=== PATIENT | male | born 1945 | race Caucasian/White ===

== ENCOUNTER → 2017-10-03 12:38 | Outpatient (CLI) | payer MEDICARE, OTHER ==
[2012-06-18 12:39] VITALS: BMI 31.0
== END | disposition home or self-care (01) ==
LOC: D.MRI 12:38
DX: M54.5 Low back pain (principal)

== ENCOUNTER 2018-04-02 06:20 | Day surgery (SDC) | payer MEDICARE, OTHER ==
[2018-04-01 16:39] LABS: HEMATOCRIT 43.7 % (42.0-54.0); HEMOGLOBIN 15.2 g/dL (13.5-17.5); MCH 32.1 pg (26.0-34.0); MCHC 34.8 g/dL (31.0-37.0); MCV 92.2 fL (80.0-100.0); MEAN PLATELET VOLUME 10.4 fL (7.4-10.4); RBC 4.74 10x6/uL (4.20-6.10); RDW 12.9 % (11.5-14.5); WBC 6.3 10x3/uL (4.8-10.8)
[~2018-04-02] VITALS: Ht 172.7 cm; Wt 95.3 kg
--- NOTE | ~2018-04-02 | OP ---
PATIENT NAME: Radha QUEEN MEDICAL RECORD: [id number] [facility] DATE: SURGEON: ROMAN WIGGINS MD DATE OF OPERATION: 04/02/2018 PREOPERATIVE DIAGNOSES: Lumbar spinal stenosis, L4-L5 right with bilateral foraminal stenosis at L4-L5. PROCEDURES: Lumbar laminotomy, medial facetectomy and foraminotomy, L4-L5 on the right with sublaminar decompression. SURGEON: Roman Wiggins MD PRIMARY CARE DOCTOR: Dr. Fuentes. DESCRIPTION AND TECHNIQUE: After induction of general endotracheal anesthesia, the patient was rolled prone on a Sam frame. Lumbar spine was prepped and draped in usual sterile fashion. Fluoroscopic x-ray and spinal needle localized the L4-L5 interspace on the right side. A series of dilators were used to advance a [employer] retractor at L4-L5 on the right. The level was confirmed with fluoroscopic x-ray. A Midas Michael drill and microscope used to perform laminotomy, medial facetectomy and foraminotomy at L4-L5 on the right. Hypertrophied ligamentum flavum was removed with Cloward rongeurs. This decompressed the dura on the right side as well as L5 and L4 nerve roots. The retractor was tilted to the opposite side. The spinous process at L4 was undermined with a Midas-Michael drill. Hypertrophied ligamentum flavum was removed on the opposite side. The left L4 and L5 nerve roots were decompressed well with Cloward rongeurs by removing hypertrophied ligamentum flavum. The wound was irrigated with copious amounts of Ancef irrigant solution. The retractor was removed. The fascia was closed with 2-0 Vicryl suture, the subdermal layer was closed with 3-0 Vicryl suture. The skin was closed with lucero. A sterile dressing was applied to the wound. The patient was awakened in good condition, taken to recovery. All counts were reported as correct. Estimated blood loss was minimal. TRANSINT:[id number] Voice Confirmation ID: [id number] DOCUMENT ID: [id number] ROMAN WIGGINS MD at 0853 CC: [id number] DICTATION DATE: 04/07/18 09 HEALTH INFORMATION TECHNICIAN: 04/07/18 1120 [facility] 04/02/18 [place] [id number] [place] [address]
[~2018-04-02 06:20] MED LIST: LOVASTATIN40 MG PO; PRINIVIL20 MG PO; PROPRANOLOL HCL20 MG PO; RANITIDINE HCL150 M1 PO
[2018-04-02] MEDS ORDERED: ALEVE220 MG (06:55)
[2018-04-02 07:00] VITALS: BP 143/88; Ht 172.7 cm; Wt 95.3 kg
== END 2018-04-02 14:45 | disposition home or self-care (01) ==
LOC: D.OPS 06:20 → D.PAN 07:30 → D.OPS 07:30
PROVIDERS: Anesthesiology
DX: M48.061 Spinal stenosis, lumbar region without neurogenic claudication (principal); I10 Essential (primary) hypertension; K21.9 Gastro-esophageal reflux disease without esophagitis; Z87.891 Personal history of nicotine dependence